=== PATIENT | female | born 1990 | race American Indian/Alaskan Native ===

== ENCOUNTER 2019-01-06 16:39 | Emergency (ER) | payer OTHER ==
[2019-01-06] MEDS ORDERED: DECADRON IV ONE (19:36)
[2019-01-06] MEDS ORDERED: CLEOCIN 900 MG/50 mL 900 MG/50 ML BAG IV ONE (19:36)
[2019-01-06] MEDS ORDERED: TORADOL IV ONE (19:36)
[2019-01-06] MEDS ORDERED: NACL 0.9% 1000 ML 1,000 ML IV ONE (19:36)
[2019-01-06 20:12] LABS: Basophils % (Auto) 0.3 % (0.0-1.8); Eosinophils % (Auto) 0.3 % (0.0-4.3); Hematocrit 40.3 % (30.3-42.9); Hemoglobin 13.8 gm/dl (10.1-14.3); Lymphocytes % (Auto) 28.2 % (13.4-35.0); Mean Corpuscular HGB Conc 34 % (30-34); Mean Corpuscular Volume 88 fl (79-97); Monocytes # (Auto) 0.3 K/mm3 (0.0-0.8); Platelet Count 289 K/mm3 (140-440); Red Blood Count 4.57 M/mm3 (3.65-5.03); Red Cell Distribution Width 15.5 % (13.2-15.2)
[2019-01-06 20:28] LABS: BUN/Creatinine Ratio 19; Blood Urea Nitrogen 13 mg/dL (7-17); Calcium 9.8 mg/dL (8.4-10.2); Hemolysis Index 12
--- NOTE | 2019-01-06 20:44 | Emergency Department Report ---
ED ENT HPI - General Chief complaint: Sore Throat Stated complaint: PERITONSILLAR ABSCESS Time Seen by Provider: 01/06/19 19:11 Source: patient Mode of arrival: Ambulatory Limitations: No Limitations - History of Present Illness Initial comments: pt is a 28 y/o aaf who presents sore throat , dx with peritonsilar abscess seen by ED and ENT scheduled for ENT follow up on January 15, 2019, pt currently taking augmentin, magic mouth rinse, states she feels that she cannot wait for ENT follow up denies dysphagia no stridor no wheezing no fever no chills. complaint: sore throat Onset/Timin -: week(s) Location: throat Severity: moderate Severity scale (0 -10): 5 Quality: burning, other (itching ) Consistency: constant Improves with: none Worsens with: swallowing Associated Symptoms: denies: fever, cough, gum swelling - Related Data Previous Rx's Medication Instructions Recorded Last Taken Type Benzocaine/Mentho [Cepacol X 1 each PO Q2H PRN #3 packet 01/06/19 Unknown Rx Strength] Clindamycin [Clindamycin CAP] 300 mg PO Q6H 10 Days #40 capsule 01/06/19 Unknown Rx dexAMETHasone [Decadron] 4 mg PO Q6H 3 Days #6 tablet 01/06/19 Unknown Rx traMADol [Ultram] 50 mg PO Q6HR PRN #12 tablet 01/06/19 Unknown Rx Allergies Allergy/AdvReac Type Severity Reaction Status Date / Time No Known Allergies Allergy Unverified 01/06/19 16:42 ED Dental HPI - General Chief complaint: Sore Throat Stated complaint: PERITONSILLAR ABSCESS Time Seen by Provider: 01/06/19 19:11 Source: patient Mode of arrival: Ambulatory Limitations: No Limitations - Related Data Previous Rx's Medication Instructions Recorded Last Taken Type Benzocaine/Mentho [Cepacol X 1 each PO Q2H PRN #3 packet 01/06/19 Unknown Rx Strength] Clindamycin [Clindamycin CAP] 300 mg PO Q6H 10 Days #40 capsule 01/06/19 Unknown Rx dexAMETHasone [Decadron] 4 mg PO Q6H 3 Days #6 tablet 01/06/19 Unknown Rx traMADol [Ultram] 50 mg PO Q6HR PRN #12 tablet 01/06/19 Unknown Rx Allergies Allergy/AdvReac Type Severity Reaction Status Date / Time No Known Allergies Allergy Unverified 01/06/19 16:42 ED Review of Systems ROS: Stated complaint: PERITONSILLAR ABSCESS Other details as noted in HPI Constitutional: denies: chills, fever Eyes: denies: eye pain, eye discharge, vision change ENT: throat pain Respiratory: denies: cough, shortness of breath, wheezing Cardiovascular: denies: chest pain, palpitations Endocrine: no symptoms reported Gastrointestinal: denies: abdominal pain, nausea, diarrhea Genitourinary: denies: urgency, dysuria, discharge Musculoskeletal: denies: back pain, joint swelling, arthralgia Skin: denies: rash, lesions Neurological: denies: headache, weakness, paresthesias Psychiatric: denies: anxiety, depression Hematological/Lymphatic: denies: easy bleeding, easy bruising ED Past Medical Hx - Past Medical History Previous Medical History?: No - Surgical History Additional Surgical History: tonsillectomy, gastric sleeve. - Social History Smoking Status: Former Smoker - Medications Home Medications: Home Medications Medication Instructions Recorded Confirmed Last Taken Type Benzocaine/Mentho [Cepacol X 1 each PO Q2H PRN #3 packet 01/06/19 Unknown Rx Strength] Clindamycin [Clindamycin CAP] 300 mg PO Q6H 10 Days #40 capsule 01/06/19 Unknown Rx dexAMETHasone [Decadron] 4 mg PO Q6H 3 Days #6 tablet 01/06/19 Unknown Rx traMADol [Ultram] 50 mg PO Q6HR PRN #12 tablet 01/06/19 Unknown Rx ED Physical Exam - General Limitations: No Limitations General appearance: alert, in no apparent distress - Head Head exam: Present: atraumatic, normocephalic, normal inspection - Eye Eye exam: Present: normal appearance, PERRL, EOMI Pupils: Present: normal accommodation - ENT ENT exam: Present: mucous membranes moist, TM's normal bilaterally, normal external ear exam - Expanded ENT Exam Expanded Ear exam: Present: normal external inspection Throat exam: Positive: tonsillar erythema, tonsillomegaly, other (no stridor ). Negative: tonsillar exudate, R peritonsillar mass, L peritonsillar mass - Neck Neck exam: Present: normal inspection, full ROM, lymphadenopathy. Absent: tend erness, meningismus, thyromegaly - Respiratory Respiratory exam: Present: normal lung sounds bilaterally. Absent: respiratory distress, wheezes, stridor, chest wall tenderness - Cardiovascular Cardiovascular Exam: Present: regular rate, normal rhythm, normal heart sounds. Absent: systolic murmur, diastolic murmur, rubs, gallop - GI/Abdominal GI/Abdominal exam: Present: soft, normal bowel sounds - Rectal Rectal exam: Present: deferred - Extremities Exam Extremities exam: Present: normal inspection, normal capillary refill - Back Exam Back exam: Present: normal inspection, full ROM. Absent: tenderness, CVA tenderness (R), CVA tenderness (L), muscle spasm, rash noted - Neurological Exam Neurological exam: Present: alert, oriented X3, CN II-XII intact, normal gait, reflexes normal. Absent: motor sensory deficit - Psychiatric Psychiatric exam: Present: normal affect, normal mood - Skin Skin exam: Present: warm, dry, intact, normal color. Absent: rash ED Course Vital Signs 01/06/19 16:46 Temperature 98.6 F Pulse Rate 64 Respiratory 20 Rate Blood Pressure 135/87 O2 Sat by Pulse 98 Oximetry ED Medical Decision Making - Lab Data Result diagrams: 01/06/19 19:54 01/06/19 19:54 - Medical Decision Making pain is relieved, pharyngitis, plan: change abx to clindamycin, ultram, cepachol, decadron follow up with ent as directed. there is no stridor no wheezing air is patent no swelling, pt is tolerating po intake Critical care attestation.: If time is entered above; I have spent that time in minutes in the direct care of this critically ill patient, excluding procedure time. ED Disposition Clinical Impression: Pharyngitis Qualifiers: Pharyngitis/tonsillitis etiology: unspecified etiology Qualified Code(s): J02.9 - Acute pharyngitis, unspecified Disposition: - TO HOME OR SELFCARE Is pt being admited?: No Does the pt Need Aspirin: No Condition: Stable Instructions: Pharyngitis (ED) Prescriptions: Benzocaine/Mentho [Cepacol X Strength] 1 each PO Q2H PRN #3 packet PRN Reason: throat pain Clindamycin [Clindamycin CAP] 300 mg PO Q6H 10 Days #40 capsule dexAMETHasone [Decadron] 4 mg PO Q6H 3 Days #6 tablet traMADol [Ultram] 50 mg PO Q6HR PRN #12 tablet PRN Reason: Pain Referrals: DISHA RECINOS MD [Staff Physician] - 3-5 Days Forms: Work/School Release Form(ED) Time of Disposition: 21:15
[2019-01-06 21:37] VITALS: BP 102/72
== END 2019-01-06 21:36 | disposition home or self-care (01) ==
LOC: ED 16:39
DX: J02.9 Acute pharyngitis, unspecified (principal); Z87.891 Personal history of nicotine dependence; Z79.899 Other long term (current) drug therapy
CPT/HCPCS: 36415; 80048; 85025; 96365; 96375; 99283; J1100; J1885; J7030